=== PATIENT | female | born 1955 | race Caucasian/White ===

== ENCOUNTER 2017-10-15 23:39 | Outpatient (CLI) | payer OTHER ==
[~2017-10-15] VITALS: Ht 165.1 cm; Wt 66.2 kg
--- NOTE | ~2017-10-15 | DS ---
PATIENT:RUDDY MENDEZ :53 MEDICAL RECORD: [id number] DISCHARGE SUMMARY ADMISSION DATE: 10/15/17 DISCHARGE DATE: 10/17/17 DISCHARGE DIAGNOSES: 1. Unstable angina. 2. Coronary artery disease. 3. Percutaneous transluminal coronary angioplasty stent, left anterior descending, left circumflex, and right coronary artery this admission. 4. Noninsulin-dependent diabetes. 5. Hypertension. 6. Hyperlipidemia. HOSPITAL COURSE: Mrs. Mendez presents with unstable anginal symptomatology, found to have severe 3-vessel coronary artery disease, underwent successful PTCA stent of all vessels, discharged home with the addition of aspirin, Plavix, and Pravachol to her medical regimen. Follow up with [facility] in 1 month. TRANSINT:[id number] Voice Confirmation ID: [id number] DOCUMENT ID: [id number] LIDIA MUÑOZ MD at 1713 CC: [id number] DICTATION DATE: 10/17/17 1256 HOME CARE SCHEDULER: 10/17/17 1308 DIS IN 10/17/17 [id number] [place] [address]
--- NOTE | ~2017-10-15 | OP ---
PATIENT NAME: RUDDY PASCUAL MEDICAL RECORD: [id number] :53 LOCATION:D.M2 D.2121 ADMISSION DATE:10/15/17 SURGEON: LIDIA MUÑOZ MD DATE OF OPERATION: 10/16/2017 PROCEDURES: 1. PTCA stent LAD. 2. PTCA stent to left circumflex. 3. Left heart catheterization. 4. Selective coronary angiography. 5. Left ventriculogram. INDICATION: Unstable angina. PROCEDURE IN DETAIL: After informed consent was obtained and after a detailed description of risks, benefits as well as alternative therapies, the patient elected to proceed with angiogram and angioplasty. The right femoral area was prepped and draped in normal sterile fashion. Right femoral artery was cannulated via modified Seldinger technique with placement of 6-Lao sheath. All catheters exchanged through this sheath. FINDINGS: The left ventriculogram was performed in standard 30-degree LEWIS view, reveals good cardiac wall motion throughout all segments. Overall ejection fraction estimated 60%. SELECTIVE CORONARY ANGIOGRAPHY: 1. Left main is with no significant angiographic disease. 2. Left anterior descending has 2 areas of 80% to 90% stenosis. 3. The left circumflex has 95% to 99% stenosis. 4. Right coronary artery has at least 80% stenosis. PTCA STENT OF THE LAD AND CIRCUMFLEX: The circumflex was addressed with a 2.0 x 18 mm Jono. The LAD with a 2.25 x 15 and 2.25 x 12, both Jono stents. Result was 0% residual stenosis. OVERALL IMPRESSION: Successful PTCA stent of the LAD and circumflex going from 90% to 95% initial stenosis to 0% residual. TRANSINT:[id number] Voice Confirmation ID: [id number] DOCUMENT ID: [id number] LIDIA MUÑOZ MD at 1710 CC: [id number] DICTATION DATE: 10/16/17 1247 MACHINE SHORTHAND REPORTER: 10/16/17 1305 ADM IN [id number] [place] [address]
--- NOTE | ~2017-10-15 | HEMODYNAMI ---
PATIENT:RUDDY PASCUAL MEDICAL RECORD: [id number] : 53 [id number] ADMISSION DATE: 10/15/17 Generatedon:10/17/201712:58 Patient name: RUDDY PASCUAL Patient #: [id number] SSN: : 1955 Date of study: 10/17/2017 Page: Of Hemodynamic Procedure Report Patient Data Patient Demographics Procedure consent was obtained First Name: RUDDY Gender: Female Last Name: ANKUR : 1955 [facility] Initial: JEANNA Age: 62 year(s) Patient #: [id number] Race: Unknown Additional ID: [id number] Contact details [address]: [address] [place] [address] State: [place] City: [place] Zip code: [address] Past Medical History Allergies Allergen Reaction Date Comments Reported Other allergy 10/16/2017 CONTRAST, TYLENOL, AUGMENTEN, LISINIPRIL, IODINE Admission Admission Data Admission Date: 10/15/2017 Admission Time: 23:39 Room #: D.2121 Lab Results Lab Result Date: 10/16/2017 Lab Result Time: 0:00 Biochemistry Name Units Result Min Max BUN mg/dl 18 --(---*)-- 7 18 Creatinine mg/dl 1 --(--*-)-- 0.6 1.3 CBC Name Units Result Min Max Hemoglobin g/dl 13 -*(----)-- 13.5 17.5 Procedure Procedure Types Cath Procedure Diagnostic Procedure FFR/IVUS Intra-Coronary IVUS Initial Sedation Charges Moderate Sedation up to 15 minutes PCI Procedure Coronary Stent Coronary Stent Initial Procedure Description Procedure Date Procedure Date: 10/17/2017 Procedure Start Time: 12:42 Procedure End Time: 12:56 Procedure Staff Name Function Pernell Ferguson MD Performing Physician Josephine Wilburn RT Monitor Mandeep Conrad RN Nurse Jaime Nunes RT Scrub Hever Mireles RT Refuse Collector Procedure Data Cath Procedure Fluoroscopy Diagnostic fluoroscopy Total fluoroscopy Time: 2.9 time: 2.9 min min Diagnostic fluoroscopy Total fluoroscopy dose: 284 dose: 284 mGy mGy Contrast Material Contrast Material Type Amount (ml) Isovue 370 34 Entry Location Entry Primary Successful Side Size Upsize Upsize Entry Closure Succes sful Closure Location (Fr) 1 (Fr) 2 (Fr) Remarks Device Remarks Femoral Left 6 Fr Exoseal artery Short Estimated blood loss: 10 ml Procedure Complications No complications Procedure Medications Medication Administration Route Dosage Oxygen etCO2 Nasal cannula 2 l/min Heparin Flush Bag added to field 2 bags (1000units/500ml NS) 0.9% NaCl I.V. 100 ml/hr Fentanyl I.V. 50 mcg Versed I.V. 1 mg Fentanyl I.V. 50 mcg Versed I.V. 1 mg Fentanyl I.V. 50 mcg Versed I.V. 1 mg Fentanyl I.V. 50 mcg Versed I.V. 1 mg Heparin Bolus I.V. 4000 units Hemodynamics Rest HGB: 13 (g/dl) Heart Rate: 55 (bpm) Snapshots Pre Cath Intra NCS Post Cath Vital Signs Time Heart Resp SPO2 etCO2 NIBP (mmHg) Rhythm Pain Sedation Rate (ipm) (%) (mmHg) Status Level (bpm) 12:18:18 56 16 96 0 189/81(145) NSR 0 (11) 10(A) , No pain 12:23:27 65 16 100 33.5 175/77(134) NSR 0 (11) 10(A) , No pain 12:28:33 52 17 98 35 149/73(134) NSR 0 (11) 10(A) , No pain 12:33:34 51 16 95 35 142/71(113) NSR 0 (11) 10(A) , No pain 12:39:16 52 16 97 36.5 129/64(100) NSR 0 (11) 10(A) , No pain 12:45:10 53 15 97 34.3 151/67(116) NSR 0 (11) 10(A) , No pain 12:50:11 56 16 95 29.8 135/70(104) NSR 0 (11) 9(A) , No pain 12:55:10 57 16 96 38 132/65(118) NSR 0 (11) 9(A) , No pain Medications Time Medication Route Dose Verified Delivered Reason Notes Effectiveness by by 12:22:23 Oxygen etCO2 2 Pernell Mandeep Per physician Nasal l/min Phyllis Conrad RN cannula 12:22:32 Heparin Flush added 2 Pernell Mandeep used for Bag to bags Phyllis Conrad RN procedure (1000units/500ml field NS) 12:22:40 0.9% NaCl I.V. 100 Pernell Mandeep Per physician ml/hr Phyllis Conrad RN 12:29:25 Fentanyl I.V. 50 Pernell Mandeep for sedation mcg Phyllis Conrad RN 12:29:32 Versed I.V. 1 mg Pernell Mandeep for sedation Phyllis Conrad RN 12:35:26 Fentanyl I.V. 50 Pernell Mandeep for sedation mcg Phyllis Conrad RN 12:35:29 Versed I.V. 1 mg Pernell Mandeep for sedation Phyllis Conrad RN 12:42:00 Fentanyl I.V. 50 Pernell Mandeep for sedation mcg Phyllis Conrad RN 12:42:49 Versed I.V. 1 mg Pernell Mandeep for sedation Phyllis Conrad RN 12:45:38 Fentanyl I.V. 50 Pernell Mandeep for sedation mcg Phyllis Conrad RN 12:45:41 Versed I.V. 1 mg Pernell Mandeep for sedation Phyllis Conrad RN 12:46:56 Heparin Bolus I.V. 4000 Pernell Mandeep for units Phyllis Conrad RN anticoagulation Procedure Log Time Note 12:03:49 Time tracking: Regular hours (M-F 7:00 - 5:00) 12:03:58 Plan of Care:Hemodynamics will remain stable., Cardiac rhythm will remain stable., Comfort level will be maintained., Respiratory function will remain adequate., Patient/ family verbilizes understanding of procedure., Procedure tolerated without complication., Recovers from procedure without complications.. 12:04:01 Signed procedure consent form obtained from patient. 12:04:23 Hever BENITEZ(R) sent for patient. Start room use. 12:11:24 Patient received from PCU to CCL 1 Alert and oriented. Tansferred to table in Supine position. 12:11:25 Warm blankets applied, and suzie hugger turned on for patient comfort. 12:11:26 Correct patient and procedure confirmed by team. 12:11:26 ECG and BP/O2 sat monitors applied to patient. 12:17:02 Vital chart was started 12:17:04 Baseline sample Acquired. 12:17:08 Rhythm: sinus bradycardia 12:17:09 Full Disclosure recording started 12:17:17 H&P Date Dictated: 10/17/2017 Within 30 days and on chart.. 12:17:17 Pre-procedure instructions explained to patient. 12:17:18 Pre-op teaching completed and patient verbalized understanding. 12:17:19 Family in patients room. 12:17:21 Patient NPO since Midnight. 12:17:30 Is the patient allergic to Iodine/contrast media? Yes. 12:17:35 Is patient on blood thinner?Yes 12:17:37 ACC The patient was administered the following blood thiners within the last 24 hours: ACCPlavix 12:17:40 Patient diabetic? Yes. 12:17:42 If diabetic: On Metformin? Yes 12:17:53 If on Metformin: Last Dose? 10/15/2017 12:17:58 Previous problem with sedation/anesthesia? Yes Nausea 12:18:14 Snore? Yes 12:18:15 Sleep apnea? Yes 12:18:16 Deviated septum? No 12:18:17 Opens mouth fully? Yes 12:18:18 Sticks out tongue? Yes 12:18:20 Airway obstruction? No ? 12:18:26 Dentures? Yes IN 12:18:29 Pre procedure: left dorsailis pedis pulse 1+ Palpable, but thready & weak; easily obliterated 12:18:32 Patient pain scale 0/10 ?. 12:18:37 IV patent on arrival in left forearm with 0.9% NaCl at O. 12:18:39 Lab results completed and on chart. 12:18:46 Left groin area was prepped with chlora-prep and draped in sterile fashion 12:18:47 Alarms reviewed by R. N. 12:18:48 Sharps counted by scrub and verified by R.N. 12:19:07 Use device set CATH PACK 12:19:08 ACIST Syringe (09589) opened to sterile field. 12:19:09 ACIST Hand Control (43238) opened to sterile field. 12:19:09 ACIST Manifold (48667) opened to sterile field. 12:19:09 Medline Cath Pack ([id number]) opened to sterile field. 12:19:10 Bag Decanter (2002S) opened to sterile field. 12:19: DIAGNOSTIC WIRE .035 260cm J wire (558626) opened to sterile field. 12:19:28 SHEATH 6FR Dixon (YWD510) opened to sterile field. 12:19:28 INFLATOR Merit BasixCompak (WG2025) opened to sterile field. 12:19:29 CHOICE PT Extra Support 182cm wire ([id number]) opened to sterile field. 12::23 Oxygen 2 l/min etCO2 Nasal cannula was administered by Mandeep Conrad RN; Per physician; 12::32 Heparin Flush Bag (1000units/500ml NS) 2 bags added to field was administered by Mandeep Conrad RN; used for procedure; 12::40 0.9% NaCl 100 ml/hr I.V. was administered by Mandeep Conrad RN; Per physician; :29 --------ALL STOP TIME OUT------ ::30 Final Timeout: patient, procedure, and site verified with staff and physician. All members of the team are in agreement. 12::33 Left groin site verified by team. 12::41 Physical assessment completed. ASA score P 2 - A patient with mild systemic disease as per Pernell Ferguson MD. 12::44 Sedation plan: IV Moderate Sedation Medication:Versed, Fentanyl 12:29:25 Fentanyl 50 mcg I.V. was administered by Mandeep Conrad RN; for sedation; ::32 Versed 1 mg I.V. was administered by Mandeep Conrad RN; for sedation; 12:31:17 Zero performed for pressure channel P1 12:35:26 Fentanyl 50 mcg I.V. was administered by Mandeep Conrad RN; for sedation; 12:35:29 Versed 1 mg I.V. was administered by Mandeep Conrad RN; for sedation; 12:42:00 Fentanyl 50 mcg I.V. was administered by Mandeep Conrad RN; for sedation; 12:42:19 Procedure started. 12:42:29 GUIDE 6FR HS I catheter (LA6HSI) opened to sterile field. 12:42:35 Local anesthetic to left femerol artery with Lidocaine 2% by Pernell Fergusno MD.INITIAL ACCESS ONLY 12:42:49 Versed 1 mg I.V. was administered by Mandeep Conrad RN; for sedation; 12:43:32 A 6 Fr Short sheath was inserted into the Left Femoral artery 12:43:45 6 Fr HS1 guide catheter was inserted over the wire 12:44:39 Guide Catheter removed. pressure damping. 12:44:59 GUIDE 6FR HS I SH catheter ([id number]) opened to sterile field. 12:45:12 6 Fr HS1 SH guide catheter was inserted over the wire 12:45:38 Fentanyl 50 mcg I.V. was administered by Mandeep Conrad RN; for sedation; 12:45:41 Versed 1 mg I.V. was administered by Mandeep Conrad RN; for sedation; 12:46:21 CHOICE ES 182 wire advanced. 12:46:25 Wire advanced across lesion. 12:46:30 [place] IVUS Catheter ([id number]) opened to sterile field. 12:46:56 Heparin Bolus 4000 units I.V. was administered by Mandeep Conrad RN; for anticoagulation; 12:47:54 IVUS catheter advanced over wire. 12:47:56 IVUS pass to RCA lesion performed. 12:47:58 IVUS catheter removed over wire. 12:49:09 Place stent Inflation Number: 1 A OTILIA RX 2.75 x 38 stent ([id number]) was prepped and advanced across the Dist RCA. The stent was deployed at 13 NEVA for 0:10 (min:sec). 12:49:39 Stent catheter was removed intact over wire. 12:50:35 Place stent Inflation Number: 1 A OTILIA RX 3.0 x 38 stent ([id number]) was prepped and advanced across the Mid RCA. The stent was deployed at 13 NEVA for 0:10 (min:sec). 12:50:49 Stent catheter was removed intact over wire. 12:51:09 EXOSEAL 6Fr (EX600) opened to sterile field. 12:51:18 Sheath removed intact; hemostasis achieved with Exoseal to the Left Femoral artery. 12:52:05 Procedure ended.(Physican Out) 12:54:21 Fluoroscopy time 02.90 minutes. 12:54:27 Fluoroscopy dose: 284 mGy 12:54:27 Flurop Dose total: 284 12:54:32 Contrast amount:Isovue 370 34ml. 12:54:34 Sharps counted by scrub and verified by R.N. 12:54:36 Insertion/operative site no bleeding no hematoma. 12:54:39 Post-op/insertion site Left Femoral artery dressed using a 4 x 4 and Tegaderm. 12:54:45 Post left femerol artery:stable, soft, clean and dry 12:54:49 Post-procedure physical assessment completed. ASA score P 2 - A patient with mild systemic disease as per Josephine Wilburn RT(R). 12:54:54 Post procedure rhythm: sinus bradycardia 12:54:57 Estimated blood loss: 10 ml 12:54:58 Post procedure instruction explained to patient.Patient verbalizes understanding. 12:54:59 Patient needs reinforcement of post procedure teaching. 12:55:29 Procedure type changed to Cath procedure, Diagnostic procedure, FFR/IVUS, Intra-Coronary IVUS Initial, Sedation Charges, Moderate Sedation up to 15 minutes, PCI procedure, Coronary Stent, Coronary Stent Initial 12:55:55 Procedure and supply charges have been captured, reviewed, submitted and are correct. 12:55:57 Procedure Complication : No complications 12:55:59 Vital chart was stopped 12:56:00 See physician's report for complete and final results. 12:56:02 Report given to Pre/Post Procedure Room. 12:56:04 Patient transfered to Pre/Post Procedure Room with Bed. 12:56:06 Procedure ended. 12:56:06 Full Disclosure recording stopped 12:56:09 End room use (Document Last) Intervention Summary Intervention Notes Time ActionType Lesion and Equipment Used Action# Pressure Duration Attributes 12:49:09 Place stent Dist RCA OTILIA RX 2.75 x 1 13 00:10 38 stent ([id number]) 12:50:35 Place stent Mid RCA OTILIA RX 3.0 x 1 13 00:10 38 stent ([id number]) Device Usage Item Name Manufacture Quantity Catalog Number Hospital Part Current M inimal Lot# / Charge Number Stock Stock Serial# Code ACIST Syringe Acist 1 06466 265731 245792 651910 2 0 (82246) [employer] Systems Inc ACIST Hand Acist 1 29351 291876 604569 506436 5 Control Medical (94306) Systems Inc ACIST Manifold Acist 1 39058 436017 852449 389183 5 (07190) Medical Systems Inc Medline Cath Cardinal 1 [id number] 096138 93128 403429 5 [facility] ([id number]) Bag Decanter Microtek 1 2001S 032713 76364 870437 5 (2001S) Medical Inc. DIAGNOSTIC St [place] 1 698861 803204 158787 472551 3 0 WIRE .035 260cm J wire (206729) SHEATH 6FR Terumo 1 STK740 923081 505771 958840 4 0 Dixon (JAO718) INFLATOR Merit Merit 1 SV0392 425928 456086 857558 1 5 MyWishBoard (GP1462) CHOICE PT [place] 1 [id number] 622353 908626 398075 5 Extra Support Scientific 182cm wire ([id number]) GUIDE 6FR HS I Medtronic 1 LA6HSI 756185 74414 232324 1 catheter (LA6HSI) GUIDE 6FR HS I Medtronic 1 [id number] 882619 93704 593608 1 SH catheter ([id number]) [place] 1 [id number] 565489 966178 273972 8 [place] IVUS Catheter (00984M) OTILIA RX 2.75 x Medtronic 1 [id number] 024695 7201424 024089 5 [id number] 38 stent ([id number]) OTILIA RX 3.0 x Medtronic 1 [id number] 911812 3779840 988247 5 [id number] 38 stent ([id number]) EXOSEAL 6Fr Cardinal 1 EX600 228199 971246 436953 1 0 (EX600) Health Signature Audit [place] Stage Time Signature Unsigned Intra-Procedure 10/17/2017 Josephine Wilburn 12:58:45 PM RT(R) Signatures Monitor : Josephine Wilburn Signature : RT Date : Time : [facility] [address] [place] [address]
--- NOTE | ~2017-10-15 | OP ---
PATIENT NAME: RUDDY PASCUAL MEDICAL RECORD: [id number] :53 LOCATION:[facility] ADMISSION DATE:10/15/17 SURGEON: LIDIA MUÑOZ MD DATE OF OPERATION: 10/17/2017 DATE OF SERVICE: 10/17/2017 PROCEDURES: 1. PTCA stent RCA. 2. Intravascular ultrasound. 3. Selective coronary angiography. INDICATION: Angina and coronary artery disease. PROCEDURE IN DETAIL: After informed consent was obtained and after detailed description of the risks, benefits as well as alternative therapies, the patient elected to proceed with angiogram and angioplasty. The left femoral area was prepped and draped in normal sterile fashion. Left femoral artery was cannulated via modified Seldinger technique with placement of 6-Jamaican sheath. All catheters exchanged through this sheath. FINDINGS: The right coronary has multiple areas of greater than 90% stenosis confirmed by intravascular ultrasound throughout the entire vessel. These were addressed with a 2.75 x 38 and 3.0 x 38, both [place] stents. Result was 0% residual stenosis. OVERALL IMPRESSION: Successful PTCA stent of the RCA going from multiple areas of 90% initial stenosis to 0% residual. TRANSINT:[id number] Voice Confirmation ID: [id number] DOCUMENT ID: [id number] LIDIA MUÑOZ MD at 1713 CC: [id number] DICTATION DATE: 10/17/17 1257 [employer] SALES REPRESENTATIVE: 10/17/17 1314 DIS IN 10/17/17 [facility] [address] [place] [address]
--- NOTE | ~2017-10-15 | HEMODYNAMI ---
PATIENT:RUDDY PASCUAL MEDICAL RECORD: [id number] : 53 [facility] [id number] ADMISSION DATE: 10/15/17 Generatedon:10/16/201712:44 Patient name: RUDDY PASCUAL Patient #: [id number] SSN: : 1955 Date of study: 10/16/2017 Page: Of Hemodynamic Procedure Report Patient Data Patient Demographics Procedure consent was obtained First Name: RUDDY Gender: Female Last Name: ANKUR : 1955 [facility] Initial: JEANNA Age: 62 year(s) Patient #: [id number] Race: Unknown Additional ID: [id number] Contact details [address]: [address] [place] [address] State: [place] City: [place] Zip code: [address] Past Medical History Allergies Allergen Reaction Date Comments Reported Other allergy 10/16/2017 CONTRAST, TYLENOL, AUGMENTEN, LISINIPRIL, IODINE Admission Admission Data Admission Date: 10/15/2017 Admission Time: 23:39 Room #: D.2121 Lab Results Lab Result Date: 10/16/2017 Lab Result Time: 0:00 Biochemistry Name Units Result Min Max BUN mg/dl 18 --(---*)-- 7 18 Creatinine mg/dl 1 --(--*-)-- 0.6 1.3 CBC Name Units Result Min Max Hemoglobin g/dl 13 -*(----)-- 13.5 17.5 Procedure Procedure Types Cath Procedure Diagnostic Procedure LHC [facility] w/Coronaries Sedation Charges Moderate Sedation up to 15 minutes PCI Procedure Coronary Stent Coronary Stent Initial x2 Procedure Description Procedure Date Procedure Date: 10/16/2017 Procedure Start Time: 12:15 Procedure End Time: 12:42 Procedure Staff Name Function Pernell Ferguson MD Performing Physician Josephine Wilburn RT Monitor Patric Mercedes RN Nurse Ronda Griffin RT Scrub Procedure Data Cath Procedure Fluoroscopy Diagnostic fluoroscopy Total fluoroscopy Time: 5.6 time: 5.6 min min Diagnostic fluoroscopy Total fluoroscopy dose: 846 dose: 846 mGy mGy Contrast Material Contrast Material Type Amount (ml) Isovue 370 108 Entry Location Entry Primary Successful Side Size Upsize Upsize Entry Closure Succes sful Closure Location (Fr) 1 (Fr) 2 (Fr) Remarks Device Remarks Femoral Right 5 Fr 6 Fr Exoseal artery Short Estimated blood loss: 10 ml Diagnostic catheters Device Type Used For End Catheter Placement MULTIPACK Pigtail 5 Fr Procedure catheter MULTIPACK JL 4.0 5Fr Procedure catheter MULTIPACK 3DRC 5Fr Procedure catheter Procedure Complications No complications Procedure Medications Medication Administration Route Dosage Phenergan 25 mg Oxygen NC 2 l/min Lidocaine 2% added to field 20 Heparin Flush Bag added to field 2 bags (1000units/500ml NS) 0.9% NaCl I.V. 100 ml/hr Versed I.V. 1 mg Fentanyl I.V. 50 mcg Versed I.V. 1 mg Fentanyl I.V. 50 mcg Heparin Bolus I.V. 4000 units Plavix P.O. 75 mg Fentanyl I.V. 50 mcg Hemodynamics Rest HGB: 13 (g/dl) Heart Rate: 68 (bpm) Snapshots Pre Cath Intra NCS Post Cath Vital Signs Time Heart Resp SPO2 etCO2 NIBP (mmHg) Rhythm Pain Sedation Rate (ipm) (%) (mmHg) Status Level (bpm) 11:51:21 68 15 96 0 186/93(148) NSR 0 (11) 10(A) , No pain 11:56:26 64 18 97 29.1 188/79(141) NSR 0 (11) 10(A) , No pain 12:01:23 62 12 94 27.6 157/80(123) NSR 0 (11) 10(A) , No pain 12:06:16 65 17 94 23.1 158/81(127) NSR 0 (11) 10(A) , No pain 12:11:09 66 15 93 30.6 150/81(120) NSR 0 (11) 10(A) , No pain 12:16:45 64 16 94 30.6 147/73(117) NSR 0 (11) 9(A) , No pain 12:21:34 63 15 93 20.9 125/71(114) NSR 0 (11) 9(A) , No pain 12:26:21 69 16 93 23.9 139/65(106) NSR 0 (11) 9(A) , No pain 12:31:07 71 14 94 29.1 124/60(106) NSR 0 (11) 9(A) , No pain 12:35:54 72 14 93 23.1 128/65(105) NSR 0 (11) 9(A) , No pain 12:40:43 70 16 95 20.1 126/60(98) NSR 0 (11) 10(A) , No pain Medications Time Medication Route Dose Verified Delivered Reason Notes Effectiveness by by 11:51:34 Phenergan IM 25 mg Pernell Buffie N/v with IM to Phyllis Mercedes RN contrast left GM 12:02:15 Oxygen NC 2 Pernell Buffie used for l/min Phyllis Mercedes RN procedure 12:02:30 Lidocaine 2% added 20ml Pernell Pernell for local to vial Phyllis Ferguson MD anesthetic field 12:02:37 Heparin Flush added 2 Pernell Pernell used for Bag to bags Phyllis Ferguson MD procedure (1000units/500ml field NS) 12:02:43 0.9% NaCl I.V. 100 Pernell Buffie Per physician ml/hr Phyllis Mercedes RN 12:10:48 Versed I.V. 1 mg Pernell Barnettie for sedation Phyllis Mercedes RN 12:10:54 Fentanyl I.V. 50 Pernell Buffie for sedation mcg Phyllis Mercedes RN 12:16:39 Versed I.V. 1 mg Pernell Buffie for sedation Phyllis Mercedes RN 12:16:43 Fentanyl I.V. 50 Pernell Barnettie for sedation mcg Phyllis Mercedes RN 12:21:57 Fentanyl I.V. 50 Pernell Buffie for sedation mcg Phyllis Mercedes RN 12:26:39 Heparin Bolus I.V. 4000 Pernell Barnettie for verifi ed units Phyllis Mercedes RN anticoagulation with dr ferguson 12:42:09 Plavix P.O. 75 mg Pernell Spivey for Phyllis Mercedes RN antiplatelet therapy Procedure Log Time Note 11:27:20 Time tracking: Regular hours (M-F 7:00 - 5:00) 11:27:24 Plan of Care:Hemodynamics will remain stable., Cardiac rhythm will remain stable., Comfort level will be maintained., Respiratory function will remain adequate., Patient/ family verbilizes understanding of procedure., Procedure tolerated without complication., Recovers from procedure without complications.. 11:29:57 Josephine Wilburn RT(R) sent for patient. Start room use. 11:44:00 Patient received from PCU to CCL 1 Alert and oriented. Tansferred to table in Supine position. 11:44:01 Warm blankets applied, and suzie hugger turned on for patient comfort. 11:44:01 Correct patient and procedure confirmed by team. 11:44:03 Signed procedure consent form obtained from patient. 11:44:04 ECG and BP/O2 sat monitors applied to patient. 11:44:05 Full Disclosure recording started 11:50:18 Vital chart was started 11:51:34 Phenergan 25 mg IM was administered by Patric Mercedes RN; N/v with contrast; IM to left GM 11:57:12 Baseline sample Acquired. 11:57:27 Baseline sample Acquired. 11:57:42 Rhythm: sinus rhythm 11:58:05 Pre-procedure instructions explained to patient. 11:58:06 Pre-op teaching completed and patient verbalized understanding. 11:58:07 Family unavailable. 11:58:09 Patient NPO since Midnight. 11:58:34 Patient allergic to Other allergyCONTRAST, TYLENOL, AUGMENTEN, LISINIPRIL, IODINE 11:58:37 Is the patient allergic to Iodine/contrast media? Yes. 11:58:38 Was the patient premedicated? Yes 11:58:40 Is patient on blood thinner?Yes 11:58:49 PRE LOADED 600 MG IN ER 11:58:51 Patient diabetic? Yes. 11:58:51 If diabetic: On Metformin? Yes 11:58:53 If on Metformin: Last Dose? 10/15/2017 11:58:58 Patient not . Patient is over age 55. 11:59:02 Previous problem with sedation/anesthesia? Yes NAUSEA 11:59:04 Snore? Yes 11:59:05 Sleep apnea? Yes 11:59:06 Deviated septum? No 11:59:07 Opens mouth fully? Yes 11:59:08 Sticks out tongue? Yes 11:59:20 Airway obstruction? No ? 11:59:42 Dentures? Yes BRIDGE TIGHT 11:59:45 Modified Mendez's test Ulnar < 7 seconds 11:59:47 Patient pain scale 2/10 ?. 11:59:59 IV patent on arrival in left forearm with 0.9% NaCl at [facility]. 12:00:09 Right Radial & Right Groin area was prepped with chlora-prep and draped in sterile fashion 12:00:16 Alarms reviewed by R. N. 12:00:19 Sharps counted by scrub and verified by R.N. 12:02:15 Oxygen 2 l/min NC was administered by Patric Mercedes RN; used for procedure; 12:02:30 Lidocaine 2% 20ml vial added to field was administered by Pernell Ferguson MD; for local anesthetic; 12:02:37 Heparin Flush Bag (1000units/500ml NS) 2 bags added to field was administered by Pernell Ferguson MD; used for procedure; 12:02:43 0.9% NaCl 100 ml/hr I.V. was administered by Patric Mercedes RN; Per physician; 12:03:05 Lab Result : BUN 18 mg/dl 12:03:05 Lab Result : Creatinine 1 mg/dl 12:03:05 Lab Result : Hemoglobin 13 g/dl 12:03:08 Lab results completed and on chart. 12:03:14 H&P Date Dictated: 10/16/2017 Within 30 days and on chart.. 12:05:07 Use device set Radial Dx or PCI 12:05:23 Zero performed for pressure channel P1 12:05:43 ACIST Syringe (20980) opened to sterile field. 12:05:44 Bag Decanter () opened to sterile field. 12:05:49 ACIST Hand Control (56561) opened to sterile field. 12:05:50 ACIST Manifold (38608) opened to sterile field. 12:05:56 Tegaderm 4 x 4 (1626W) opened to sterile field. 12:05:59 Medline Cath Pack ([id number]) opened to sterile field. 12:06:00 DIAGNOSTIC WIRE .035 260cm J wire (856451) opened to sterile field. 12:06:01 MBrace Wrist Support ([id number]) opened to sterile field. 12:06:03 SHEATH 6Fr Prelude Radial ([id number]) opened to sterile field. 12:08:19 --------ALL STOP TIME OUT------ 12:08:20 Final Timeout: patient, procedure, and site verified with staff and physician. All members of the team are in agreement. 12:08:23 Right Radial & Right Groin site verified by team. 12:08:27 Physical assessment completed. ASA score P 2 - A patient with mild systemic disease as per Pernell Ferguson MD. 12:08:30 Sedation plan: IV Moderate Sedation Medication:Versed, Fentanyl 12:10:48 Versed 1 mg I.V. was administered by Patric Mercedes RN; for sedation; 12:10:54 Fentanyl 50 mcg I.V. was administered by Patric Mercedes RN; for sedation; 12:14:38 Procedure started. 12:15:07 Local anesthetic to right radial artery with Lidocaine 2% by Pernell Ferguson MD.INITIAL ACCESS ONLY 12:16:30 NO RADIAL 12:16:39 Versed 1 mg I.V. was administered by Patric Mercedes RN; for sedation; 12:16:41 Use device set Multipack Set 12:16:43 Fentanyl 50 mcg I.V. was administered by Patric Mercedes RN; for sedation; 12:16:50 SHEATH 5FR [place]ima (DLS422) opened to sterile field. 12:16:56 DIAGNOSTIC Multipack 5Fr catheter set (CA8808) opened to sterile field. 12:20:01 Local anesthetic to right femoral artery with Lidocaine 2% by Pernell Ferguson MD.ADDITIONAL ACCESS 12:20:43 A 5 Fr sheath was inserted into the Right Femoral artery 12:20:57 A MULTIPACK Pigtail 5 Fr catheter was advanced over the wire and used for Procedure. 12:21:34 LV gram done using LEWIS 12:21:37 Injector settings: Ml/sec: 10, Volume: 20, 12:21:50 EF : 60 % 12:21:51 Catheter removed. 12:21:57 Fentanyl 50 mcg I.V. was administered by Patric Mercedes RN; for sedation; 12:21:58 A MULTIPACK JL 4.0 5Fr catheter was advanced over the wire and used for Procedure. 12:23:37 LCA angiography performed. 12:23:38 Catheter removed. 12:23:45 A MULTIPACK 3DRC 5Fr catheter was advanced over the wire and used for Procedure. 12:24:47 RCA angiography performed. 12:24:51 Catheter removed. 12:25:00 SHEATH 6FR [place] (RIE534) opened to sterile field. 12:25:01 INFLATOR Merit BasixCompak (ON0023) opened to sterile field. 12:25:02 CHOICE PT Extra Support 182cm wire ([id number]) opened to sterile field. 12:25:31 Sheath upsized to a 6 Fr Short. 12:26:09 6 Fr EBU 3.5 guide catheter was inserted over the wire 12::19 GUIDE 6FR EBU 3.5 catheter ([id number]) opened to sterile field. 12:26:39 Heparin Bolus 4000 units I.V. was administered by Patric Mercedes RN; for anticoagulation; verified with dr ferguson 12:27:14 CHOICE ES 182 wire advanced. 12:27:35 Wire advanced across lesion. 12:28:56 Inflate balloon Inflation number: 1 A EUPHORA 2.0 x 15 Balloon ([id number]) was prepped and advanced across the Prox CX, then inflated to 11 NEVA for 0:10 (min:sec). 12:29:21 Balloon removed over the wire. 12:30:21 Place stent Inflation Number: 2 A OTILIA RX 2.0 x 18 stent ([id number]) was prepped and advanced across the Prox CX. The stent was deployed at 11 NEVA for 0:10 (min:sec). 12:30:51 Stent catheter was removed intact over wire. 12:31:03 Wire redirected to LAD. 12:35:00 Place stent Inflation Number: 1 A OTILIA RX 2.25 x 12 stent ([id number]) was prepped and advanced across the Dist LAD. The stent was deployed at 13 NEVA for 0:10 (min:sec). 12:35:42 Stent catheter was removed intact over wire. 12:36:20 Place stent Inflation Number: 1 A OTILIA RX 2.25 x 15 stent ([id number]) was prepped and advanced across the Mid LAD. The stent was deployed at 17 NEVA for 0:10 (min:sec). 12:36:45 Stent catheter was removed intact over wire. 12:36:46 Wire removed. 12:36:46 Guide catheter removed. 12:36:58 EXOSEAL 6Fr (EX600) opened to sterile field. 12:37:10 Sheath removed intact; hemostasis achieved with Exoseal to the Right Femoral artery. 12:38:20 Procedure ended.(Physican Out) 12:41:05 Fluoroscopy time 05.60 minutes. 12:41:09 Fluoroscopy dose: 846 mGy 12:41:09 Flurop Dose total: 846 12:41:13 Contrast amount:Isovue 370 108ml. 12:41:14 Sharps counted by scrub and verified by R.N. 12:41:19 Post-op/insertion site Right Femoral artery dressed using a 4 x 4 and Tegaderm. 12:41:22 Post right femoral artery:stable, soft, clean and dry 12:41:28 Post-procedure physical assessment completed. ASA score P 2 - A patient with mild systemic disease as per Pernell Ferguson MD. 12:41:35 Post procedure rhythm: sinus rhythm 12:41:37 Estimated blood loss: 10 ml 12:41:39 Post procedure instruction explained to patient.Patient verbalizes understanding. 12:41:39 Patient needs reinforcement of post procedure teaching. 12:42:04 Procedure type changed to Cath procedure, Diagnostic procedure, LHC, LHC w/Coronaries, Sedation Charges, Moderate Sedation up to 15 minutes, PCI procedure, Coronary Stent, Coronary Stent Initial x2 12:42:09 Plavix 75 mg P.O. was administered by Patric Mercedes RN; for antiplatelet therapy; 12:42:35 Procedure and supply charges have been captured, reviewed, submitted and are correct. 12:42:37 Procedure Complication : No complications 12:42:40 Vital chart was stopped 12:42:40 See physician's report for complete and final results. 12:42:43 Report given to PCU. 12:42:46 Patient transfered to PCU with Bed. 12:42:48 Procedure ended. 12:42:48 Full Disclosure recording stopped 12:42:53 End room use (Document Last) Intervention Summary Intervention Notes Time ActionType Lesion and Equipment Used Action# Pressure Duration Attributes 12:28:56 Inflate Prox CX EUPHORA 2.0 x 1 11 00:10 balloon 15 Balloon ([id number]) 12:30:21 Place stent Prox CX OTILIA RX 2.0 x 2 11 00:10 18 stent ([id number]) 12:35:00 Place stent Dist LAD OTILIA RX 2.25 x 1 13 00:10 12 stent ([id number]) 12:36:20 Place stent Mid LAD OTILIA RX 2.25 x 1 17 00:10 15 stent ([id number]) Device Usage Item Name Manufacture Quantity Catalog Number Hospital Part Current Minimal Lot# / Charge Number Stock Stock Serial# Code ACIST Syringe Acist 1 58683 956003 128138 342042 20 (26107) Medical Systems PreViser Bag Decanter Microtek 1 2001S 660666 08797 847381 5 (2001S) Medical Inc. ACIST Hand Acist 1 89714 349695 533214 562900 5 Control (05834) Medical Systems Inc ACIST Manifold Acist 1 27421 623194 808427 053585 5 (20819) Medical Systems Inc Tegaderm 4 x 4 3M 1 1626W 882616 241315 526662 5 (1626W) Medline Cath Cardinal 1 [id number] 864692 45589 502243 5 Pack Health ([id number]) DIAGNOSTIC WIRE St [place]unior 1 299231 037020 051483 455838 30 .035 260cm J wire (946415) MBrace Wrist Advanced 1 140-0250-00 665525 41571 379567 5 Support Vascular ([id number]) Dynamics SHEATH 6Fr Merit 1 [id number] 115198 975085 208571 5 Prelude Radial Medical ([id number]) SHEATH 5FR Terumo 1 IUZ483 863855 080994 997200 40 Lima (ZZQ239) DIAGNOSTIC Cardinal 1 XY5839 265567 43774 109332 30 Multipack 5Fr Health catheter set (DF5899) MULTIPACK Cardinal 1 231302 5 Pigtail 5 Fr Health catheter MULTIPACK JL Cardinal 1 710804 5 4.0 5Fr Health catheter MULTIPACK 3DRC Cardinal 1 190039 5 5Fr catheter Health SHEATH 6FR Terumo 1 KJU877 509297 944941 888480 40 Lima (NJA439) INFLATOR Merit Merit 1 OW7675 885392 473621 337281 15 SeeToo (NF6442) CHOICE PT Extra [place] 1 [id number] 272938 692202 975599 5 Support 182cm Scientific wire ([id number]) GUIDE 6FR EBU Medtronic 1 [id number] 537365 83172 483057 3 3.5 catheter ([id number]) EUPHORA 2.0 x Medtronic 1 [id number] 726689 320208 024227 5 [id number] 15 Balloon ([id number]) OTILIA RX 2.0 x Medtronic 1 [id number] 938180 4213658 196836 5 [id number] 18 stent ([id number]) OTILIA RX 2.25 x Medtronic 1 [id number] 282540 2419204 134413 5 [id number] 12 stent ([id number]) OTILIA RX 2.25 x Medtronic 1 [id number] 083998 6465746 910092 5 [id number] 15 stent ([id number]) EXOSEAL 6Fr Cardinal 1 EX600 046246 394578 578584 10 (EX600) Health Signature Audit Winger Stage Time Signature Unsigned Intra-Procedure 10/16/2017 Josephine Wilburn 12:44:45 PM RT(R) Signatures Monitor : Josephine Wilburn Signature : RT Date : Time : [place] [address] [place] [address]
[2017-10-16] VITALS: BP 149/59
[2017-10-16] MEDS ORDERED: ISOSORBIDE MONO30 M1 PO (03:01)
[2017-10-16] MEDS ORDERED: SYNTHROID112 MCG PO (03:02)
[2017-10-16] MEDS ORDERED: DIPYRIDAMOLE75 MG PO ×2 (03:03)
[2017-10-16] MEDS ORDERED: BAYER CHEWABLE81 MG PO (03:04)
[2017-10-16] MEDS ORDERED: GLUCOPHAGE500 MG PO (03:05)
[2017-10-16] MEDS ORDERED: TENORMIN25 MG PO (03:06)
[2017-10-16] MEDS ORDERED: HYDROCHLOROTH12.5 M1 PO (03:07)
[2017-10-16] MEDS ORDERED: COZAAR25 MG PO (03:11)
[2017-10-16 04:00] VITALS: BP 197/73
[2017-10-16 04:29] VITALS: BP 149/59; BMI 24.4
[2017-10-16 07:56] VITALS: BP 219/107
[2017-10-16 09:20] LABS: BASOPHILS 0.2 % (0-2); EOSINOPHILS 0 % (0-7); HEMATOCRIT 36.1 % (36.0-48.0); IMMATURE GRANULOCYTES 0.8 % (0-5); LYMPHOCYTES 7.5 % (15-50); MCH 28.5 pg (26.0-34.0); MCV 79.2 fL (80.0-100.0); MEAN PLATELET VOLUME 10.9 fL (7.4-10.4); MONOCYTES 0.6 % (2-11); NEUTROPHILS 90.9 % (40-80); PLATELET COUNT 154 10x3/uL (130-400); RBC 4.56 10x6/uL (4.00-5.40); RDW 12.9 % (11.5-14.5); WBC 6.3 10x3/uL (4.8-10.8)
[2017-10-16 10:32] LABS: ANION GAP 16.7 mmol/L (8-16); CALCIUM 9.4 mg/dL (8.5-10.1); CARBON DIOXIDE 25.1 mmol/L (21.0-32.0); POTASSIUM - SERUM 4.8 mmol/L (3.5-5.1)
[2017-10-16 20:13] VITALS: BP 125/56
[2017-10-17 01:27] VITALS: BP 100/48
[2017-10-17 05:13] VITALS: BP 131/60
[2017-10-17 07:40] VITALS: BP 152/60
[2017-10-17 12:02] VITALS: BP 162/43
[2017-10-17] MEDS ORDERED: PRAVACHOL40 MG PO (13:26)
[2017-10-17] MEDS ORDERED: PLAVIX75 MG PO (13:27)
[2017-10-17 13:49] VITALS: Ht 165.1 cm; Wt 66.2 kg
== END 2017-10-17 16:54 | disposition home or self-care (01) ==
LOC: OBSVTIME → D.SDCHOLD 23:39 → OBSVTIME 23:39 → UNDOADMOB 23:39 → D.CATH 23:39 → D.CLR 23:39 → D.M2 23:39 → D.SDCHOLD 10-16 00:56 → D.M2 10-16 00:56 → EDSTATUS 10-16 10:00 → D.M2 10-16 10:58 → D.CLR 10-17 13:02 → D.M2 10-17 13:02 → D.CATH 10-17 16:54 → D.CLR 10-17 16:54
PROVIDERS: Internal Medicine Interventional Cardiology
DX: I25.110 Atherosclerotic heart disease of native coronary artery with unstable angina pectoris (principal); E11.9 Type 2 diabetes mellitus without complications; Z87.891 Personal history of nicotine dependence; I16.0 Hypertensive urgency; E78.5 Hyperlipidemia, unspecified